=== PATIENT | female | born 1970 | race Caucasian/White ===

== ENCOUNTER 2017-03-25 20:43 | Emergency (ER) | payer OTHER ==
[2017-03-25 20:53] VITALS: BP 128/90; PULSE 87; RESP 16; TEMP 98.6; O2SAT 94
[2017-03-25] MEDS ORDERED: IBUPROFEN 600 MG TAB PO ONE (21:51)
--- NOTE | 2017-03-25 22:26 | EDPHY ---
H & P Stated Complaint: c/o pain in R knee/R foot/R hip/hands, says she fell stepping from a bus Source: Patient, Family Exam Limitations: No limitations - Personal History Current Tetanus Diphtheria and Acellular Pertussis (TDAP): No - Medical/Surgical History Hx Asthma: No Hx Chronic Respiratory Disease: No Hx Diabetes: No Hx Cardiac Disease: No Hx Renal Disease: No Hx Cirrhosis: No Hx Alcoholism: No Hx HIV/AIDS: No Hx Splenectomy or Spleen Trauma: No Other PMH: hypothyroid, surg to R hand, bilat surg to upper arms - Family History Significant Family History: No pertinent family hx - Social History Smoking Status: Current every day smoker Alcohol Use: Sober Time Seen by Provider: 03/25/17 21:16 HPI/ROS: CHIEF COMPLAINT: Fell out of bus HISTORY OF PRESENT ILLNESS: Patient is a 46-year-old female who is employed by [employer] who states that she fell down the last step of a bus onto the cement. She is complaining of right knee pain and abrasion. Also right ankle pain. She states that she also landed on her right hip and both arms but she is not concerned about injuries there. This happened just prior to arrival. She has been ambulatory. REVIEW OF SYSTEMS: Constitutional: denies: chills, fever, recent illness, recent injury EENTM: denies: blurred vision, double vision, nose congestion Respiratory: denies: cough, shortness of breath Cardiac: denies: chest pain, irregular heart rate, lightheadedness, palpitations Gastrointestinal/Abdominal: denies: abdominal pain, diarrhea, nausea, vomiting, blood streaked stools Genitourinary: denies: dysuria, frequency, hematuria, pain Musculoskeletal: See HPI Skin: See HPI Neurological: denies: headache, numbness, paresthesia, tingling, dizziness, weakness Hematologic/Lymphatic: denies: blood clots, easy bleeding, easy bruising Immunologic/allergic: denies: HIV/AIDS, transplant EXAM: GENERAL: Well-appearing, well-nourished and in no acute distress. HEAD: Atraumatic, normocephalic. EYES: Pupils equal round and reactive to light, extraocular movements intact, sclera anicteric, conjunctiva are normal. ENT: TMs normal, nares patent, oropharynx clear without exudates. Moist mucous membranes. NECK: Normal range of motion, supple without lymphadenopathy or JVD. LUNGS: Breath sounds clear to auscultation bilaterally and equal. No wheezes rales or rhonchi. HEART: Regular rate and rhythm without murmurs, rubs or gallops. ABDOMEN: Soft, nontender, normoactive bowel sounds. No guarding, no rebound. No masses appreciated. BACK: No CVA tenderness, no spinal tenderness, step-offs or deformities EXTREMITIES: Normal range of motion, no pitting or edema. No clubbing or cyanosis. No deformity. No swelling. No bruising NEUROLOGICAL: Cranial nerves II through XII grossly intact. Normal speech, normal gait. 5/5 strength, normal movement in all extremities, normal sensation PSYCH: Normal mood, normal affect. SKIN: Minor abrasion to right knee. No swelling. No deformity. (Venkatesh Zhong) Constitutional: Initial Vital Signs Temperature (C) 37 C 03/25/17 20:49 Heart Rate 87 03/25/17 20:49 Respiratory Rate 16 03/25/17 20:49 Blood Pressure 128/90 H 03/25/17 20:49 O2 Sat (%) 94 03/25/17 20:49 O2 Delivery Mode Room Air Allergies/Adverse Reactions: bee venom protein (honey bee) Allergy (Verified 03/25/17 20:54) ubaldo Allergy (Verified 03/25/17 20:54) Home Medications: Medication Instructions Recorded Levothyroxine 03/25/17 Medical Decision Making - Diagnostics Imaging Results: 0217am: Notified by Radiology this patient may have a cuboid fracture. Will contact her asked her to come back for most likely a splint placement and podiatry follow-up. (Fabiano Siu) ED Course/Re-evaluation: Patient is very anxious. She screamed in pain when we gently lifted her Band- Aid to evaluate her abrasion. She is asking for pain medicine will treat her with ibuprofen. 10:30 p.m. we discussed the x-ray results. Patient states that the pain is a bed she has trouble walking. She was able to walk into the department. She is asking for narcotics. I declined this. She was placed in an Mohinder wrap. I encouraged her to ambulate, elevate and ice her knee. (Venkatesh Zhong) Differential Diagnosis: Partial list of the Differential diagnosis considered include but were not limited to; contusion, abrasion and although unlikely based on the history and physical exam, I also considered fracture, dislocation, vascular injury. I discussed these differential diagnoses and the plan with the patient as well as the usual and expected course. The patient understands that the diagnosis is provisional and that in medicine we are not always correct and that further workup is often warranted. Usual and customary warnings were given. All of the patient's questions were answered. The patient was instructed to return to the emergency department should the symptoms at all worsen or return, otherwise to followup with the physician as we discussed. (Venkatesh Zhong) - Data Points Medications Given: Discontinued Medications Ibuprofen (Motrin) 600 mg PO EDNOW ONE Stop: 03/25/17 21:52 Last Admin: 03/25/17 21:56 Dose: 600 mg Departure - Departure Disposition: Home, Routine, Self-Care Clinical Impression: Abrasion Knee pain, right Qualifiers: Chronicity: acute Qualified Code(s): M25.561 - Pain in right knee Condition: Fair Instructions: Abrasion (ED), Knee Pain (ED) Referrals: MARLO,UNKNOWN [Other] - As per Instructions Work Comp Ref/Restrictions [Outside] - As per Instructions Work Comp Referral [facility] [Outside] - As per Instructions
== END 2017-03-25 22:59 | disposition home or self-care (01) ==
DX: S80.211A Abrasion, right knee, initial encounter (principal); F17.200 Nicotine dependence, unspecified, uncomplicated; V74.4XXA Person boarding or alighting from bus injured in collision with heavy transport vehicle or bus, initial encounter; Y92.410 Unspecified street and highway as the place of occurrence of the external cause; Y99.0 Civilian activity done for income or pay